=== PATIENT | male | born 1990 | race Caucasian/White ===

== ENCOUNTER 2022-02-01 20:13 | Emergency (ER) | payer OTHER, SELFPAY ==
[2022-02-01 22:27] VITALS: BP 137/85; PULSE 102; RESP 14; TEMP 36.5; O2SAT 100; BMI 23.7
== END 2022-02-02 01:00 | disposition left against medical advice (07) ==
PROVIDERS: Emergency Provider Emergency Medicine
DX: M79.672 Pain in left foot (principal)
CPT/HCPCS: 99281; 99282

== ENCOUNTER 2022-07-14 19:14 | Emergency (ER) | payer OTHER, SELFPAY ==
[2022-07-14 19:25] VITALS: BP 128/83; BP 162/80; PULSE 122; PULSE 66; RESP 16; O2SAT 97; O2SAT 98; BMI 25.0
--- NOTE | 2022-07-14 19:40 | ECG_ITS ---
Test Reason : SEIZURE Blood Pressure : / mmHG Vent. Rate : 109 BPM Atrial Rate : 109 BPM P-R Int : 158 ms QRS Dur : 104 ms QT Int : 340 ms P-R-T Axes : 052 013 033 degrees QTc Int : 457 ms Sinus tachycardia Otherwise normal ECG No previous ECGs available Referred By: Miranda Rodriguez Electronically Signed By:ROMAN RIVERA MD
--- OUTSIDE RECORDS SUMMARY | 2022-07-14 19:47 | XMS_ITS | Continuity of Care Document ---
:1990 Author Organization [facility] Address [address], 3rd [address], [address] [place] [id number]- Care Team Providers Name Role Phone Nitza Rangel MD Primary Care Physician Encounter [facility] Date(s): 01/14/20 - 01/24/20 [facility] [address], [address], [address] [place] [id number]- [facility] Attending Physician: Cindi Cotto Admitting Physician: Cindi Cotto Referring Physician: AdmtrCindi Allergies, Adverse Reactions, Alerts Substance Reaction Severity Status NKA Active Immunizations Given and Recorded Vaccine Date Status Refusal Reason influenza virus vaccine, inactivated 11/27/19 Given Meningococcal Conjugate Vaccine 01/29/08 Given Tet/Diphth/Acel, Pertussis (oldterm)1 01/29/08 Given Hepatitis B Vaccine (old term)2 06/07/02 Given Hepatitis B Vaccine (old term)3 12/13/01 Given tetanus-diphtheria toxoids (Td) 12/13/01 Given Measles/Mumps/Rubella Virus Vaccine 05/26/95 Given Measles/Mumps/Rubella Virus Vaccine 11/10/90 Given Diphth/Pertussis,Acel/Tetanus (oldterm) 01/26/95 Given Poliovirus Vaccine, Inactivated 01/26/95 Given Poliovirus Vaccine, Inactivated 03/15/91 Given Poliovirus Vaccine, Inactivated 89 Given Poliovirus Vaccine, Inactivated4 89 Given Poliovirus Vaccine, Inactivated 89 Given Diphth/Pertussis, Whl Cell/Tet(oldterm) 03/15/91 Given Diphth/Pertussis, Whl Cell/Tet(oldterm) 03/16/90 Given Diphth/Pertussis, Whl Cell/Tet(oldterm) 89 Given Diphth/Pertussis, Whl Cell/Tet(oldterm) 89 Given Haemophilus B Conj Vaccine (oldterm) 11/10/90 Given 1Admin Note: [id number] Note: 10 mcg given - 2 dose [id number] Note: 10 mcg given - 2 dose [id number] Comment: unchart, in error Medications Fish Oil 1 capsule, By Mouth, 2 times a day, Maintenance, 11/22/19 19:49:00 EST Start Date: 11/22/19 Status: OrderedFlonase 50 mcg/inh nasal spray 1 sprays, Nares, Both, Daily, Maintenance, 11/22/19 19:50:00 EST, [place] Start Date: 11/22/19 Status: Orderedfolic acid 1 mg oral tablet 1 mg, 1, tablet, By Mouth, Daily, # 30 tablet, Refills 0, Tot. Refills 0, Maintenance, 11/23/19 13:03:00 EST, [place] Requisition Start Date: 11/23/19 Status: OrderedhydrOXYzine hydrochloride 25 mg oral tablet TAKE 1 TABLET BY MOUTH EVERY 8 HOURS NEEDED Start Date: 01/08/20 Status: OrderedNiacin 1, tablet, By Mouth, Daily, Maintenance, 11/22/19 19:48:00 EST Start Date: 11/22/19 Status: OrderedProAir HFA 90 mcg/inh inhalation aerosol with adapter 1, puffs, Inhalation, Every 4 hours, PRN, # 8.5 Gm, Refills 0, Tot. Refills 0, Maintenance, 11/27/2009:30:00 EST, Aerosol, Route to Pharmacy Electronically, [id number], [facility], [address], , 11/27/19 8:50:00 E... Start Date: 11/27/19 Status: OrderedQUEtiapine 25 mg oral tablet TAKE 1 TABLET BY MOUTH EVERYDAY AT BEDTIME Start Date: 01/08/20 Status: Ordered Problem List Condition Effective Dates Status Health Status Informant Acne(Confirmed) Active Allergic rhinitis(Confirmed) Active Asthma(Confirmed) Active Attention deficit hyperactivity Active disorder(Confirmed) Social History Social History Type Response Sex Male
--- OUTSIDE RECORDS SUMMARY | 2022-07-14 19:47 | XMS_ITS ---
:1990 Author Care Team Providers Name Role Phone [place] Primary Care Provider Unavailable Allergies None recorded. Medications None recorded. Problems None recorded. Procedures None recorded. Results Lab Results None recorded. Past Encounters None recorded. Social History None recorded. Vaccine List None recorded. Plan of Care Reminders Provider Appointments None recorded. ? ? Lab None recorded. ? ? Referral None recorded. ? ? Procedures None recorded. ? ? Surgeries None recorded. ? ? Imaging None recorded. ? ? Vitals None recorded.
[2022-07-14] MEDS: LORazepam 1 MG TABLET 2 MG PO (19:52)
[2022-07-14] MEDS: 0.9 % Sodium Chloride 1,000 ML 999 ML IVCONT ×2 (19:55→21:48)
--- NOTE | 2022-07-14 19:59 | ED_ITS ---
HPI - Seizure General Chief Complaint: Seizure Stated Complaint: seizure Time Seen by Provider: 07/14/22 19:32 Source: patient and EMS Mode of arrival: EMS Limitations: no limitations History of Present Illness HPI Narrative: Patient comes to the emergency room complaining of a seizure. Patient states that he was on his way home, and a bus. Patient had a witnessed tonic-clonic seizure that lasted approximately 30 seconds. Patient states that he did feel an aura. Patient had 1 seizure prior to this 1 in 2019 and has not had any recurrent seizures. Patient states in 2019 he was evaluated, EKG was nondiagno stic according to the patient. Patient does not drive, does not have a car. Patient states that he did not bite his tongue or loss bowel/bladder control. At this time, patient is asymptomatic. Related Data Previous Rx's Medication Instructions Recorded levetiracetam 500 mg tablet 500 mg PO BID #60 tabs 07/14/22 (Keppra) Allergies Allergy/AdvReac Type Severity Reaction Status Date / Time No Known Allergies Allergy Verified 07/14/22 19:39 Review of Systems Review of Systems: Constitutional : No Weight loss, No Fever, No Chills, No Night Sweats, No Fatigue, No Malaise ENT/Mouth : No Hearing loss, No Ear Pain, No Nasal Congestion, No Sinus Pain, No Hoarseness, No sore throat, No Rhinorrhea, No Swallowing Difficulty Eyes: No Eye Pain, No Swelling, No Redness, No Foreign Body, No Discharge, No Vision Changes Cardiovascular : No Chest Pain, No SOB, No Dyspnea on Exertion, No Orthopnea, No Edema, No Palpitations Respiratory : No Cough, No Sputum, No Wheezing, No Smoke Exposure, No Dyspnea Gastrointestinal : No Nausea, No Vomiting, No Diarrhea, No Constipation, No abdominal Pain, No Hematochezia, No Melena Genitourinary : no irregular bleeding, No Dysuria, No Urinary Frequency, No Hematuria, No Urinary Incontinence, No Urgency, No Flank Pain, No Urinary Flow Changes, No Hesitancy Musculoskeletal : No joint pain, No Myalgias, No Joint Swelling Skin : No Skin Lesions, No rash Neuro : No Weakness, No Numbness, No Paresthesias, no headache, complaining of a tonic clonic seizure Psych : No Anxiety/Panic, No Depression, No SI/HI/AH/VH, No Social Issues, Heme/Lymph: No Bruising, No Bleeding,No Lymphadenopathy Endocrine : No Polyuria, No Polydipsia, No Temperature Intolerance [facility] Past Medical History Medical History (Updated 07/14/22 @ 22:47 by Miranda Rodriguez MD) Seizure Social History Social History Advance Directives: No Advance Directives Information Provided: No Physical Exam Vital Signs: Vital Signs: Last Vital Signs Temp 98.3 F 07/14/22 21:40 Pulse 95 07/14/22 22:44 Resp 16 07/14/22 22:44 BP 118/83 07/14/22 22:44 Pulse Ox 97 07/14/22 22:44 O2 Del Method 07/14/22 22:44 BMI result Body Mass Index 25.0 Const: Other: Appearance: Alert. Oriented X3. No acute distress. Eyes: Pupils equal, round and reactive to light. ENT: Pharynx normal. Neck: Normal inspection. Neck supple. No lymph nodes noted. No crepitus CVS: Normal heart rate and rhythm. Pulses normal. Normal S1 and S2 Respiratory: No respiratory distress. Breath sounds normal. No Wheezing. No rales Abdomen: Soft and nontender. No rigidity. No distention. Skin: Skin warm and dry. Normal skin color. Normal skin turgor. Extremities: No lower extremity edema. No Lacerations. No Rash Neuro: Oriented X 3. No motor deficit. No sensory deficit. Moving all extremities. No slurred speech. CN 2 through 12 grossly intact Psych: calm, cooperative, normal affect Course Course Course Narrative: Patient is awake, well appearing, not postictal at this time. All of patient's labs are pending. Patient given 2 mg of p.o. Ativan Patient's lactic acid is 3.2, elevated secondary to the seizure. Sepsis not suspected. Patient receiving IV fluids. Patient was also given 1000 mg of IV Keppra. This is the 2nd time that the patient has a seizure. Patient will be sent home with a prescription for Keppra. Patient instructed to have close follow-up with his PCP and with Neurology. MDM - Seizure Lab Data Result diagrams: 07/14/22 20:09 07/14/22 20:09 Labs: Lab Results 07/14/22 07/14/22 07/14/22 Range/Units 20:09 20:09 20:09 WBC 5.7 (4.8-10.8) X10*3/uL RBC 4.37 L (4.60-5.80) X10*6/uL Hgb 13.4 L (14.0-18.0) g/dl Hct 39.3 L (42.0-52.0) % MCV 89.9 (80.0-98.0) fL MCH 30.7 (27.0-33.0) pg MCHC 34.1 (31.0-36.0) g/dl RDW 14.1 (11.0-16.0) % Plt Count 323 (160-400) X10*3/uL MPV 9.5 (9.4-12.4) fL Immature Gran % (Auto) 0.2 (0.0-0.4) % Neut % (Auto) 79.1 H (45-73) % Lymph % (Auto) 11.7 L (20-40) % [place] % (Auto) 7.1 (2-11) % Eos % (Auto) 0.5 (0-4) % Baso % (Auto) 1.4 (0-2) % Lymph # (Auto) 0.7 L (1.2-4.9) X10*3/uL [place] # (Auto) 0.4 (0.1-1.2) X10*3/uL Eos # (Auto) 0.0 (0.0-0.4) X10*3/uL Baso # (Auto) 0.1 (0.0-0.2) X10*3/uL Abs Immat Gran (auto) 0.01 (0.00-0.03) X10*3/uL Absolute Neuts (auto) 4.5 (2.0-8.3) x10*3/uL Absolute Nucleated RBC 0.000 (0.0-0.012) X10*3/uL Nucleated RBC % (auto) 0.0 (0.0-0.2) /100WBC Sodium 138 (135-145) mmol/L Potassium 4.3 (3.3-5.1) mmol/L Chloride 99 (96-108) mmol/L Carbon Dioxide 26 (22-29) mmol/L Anion Gap 17 (12-20) BUN 14 (9-16) mg/dL Creatinine 0.71 (0.5-1.4) mg/dL Estim Creat Clear Calc 162.4 Estimated GFR > 60 Random Glucose 128 H (60-115) mg/dL Lactic Acid 3.2 H* (0.5-2.0) mmol/L Calcium 9.8 (8.4-10.2) mg/dL Total Bilirubin 0.4 (0.0-1.0) mg/dL Direct Bilirubin 0.2 (0.0-0.5) mg/dL AST 147 H (5-37) U/L ALT 247 H (0-40) U/L Alkaline Phosphatase 85 (39-117) U/L Total Creatine Kinase (38-174) U/L Total Protein 7.9 (6.5-8.0) g/dL Albumin 4.9 (3.5-5.0) g/dL Urine Color Urine Appearance Urine pH (5.0-9.0) Ur Specific [place] (1.005-1.025) Urine Protein (Neg-Trace) mg/dL Urine Glucose (UA) (Negative) mg/dL Urine Ketones (Negative) mg/dL Urine Blood (Negative) Urine Nitrite (Negative) Ur Leukocyte Esterase (Negative) Urine RBC (0-2) /HPF Urine WBC (0-5) /HPF Ur Squamous Epith Cells (0-2) /HPF Urine Bacteria (None Seen) Hyaline Casts (0-2) /LPF Urine Opiates Screen (Not Detect) Urine Fentanyl Screen (Not Detect) Ur Barbiturates Screen (Not Detect) Ur Phencyclidine Scrn (Not Detect) Ur Amphetamines Screen (Not Detect) U Benzodiazepines Scrn (Not Detect) Urine Cocaine Screen (Not Detect) U Marijuana (THC) Screen (Not Detect) Ethyl Alcohol mg/dL COVID-19 (JULY) (Negative) COVID-19 Clin Com 07/14/22 07/14/22 07/14/22 Range/Units 20:09 20:09 21:41 WBC (4.8-10.8) X10*3/uL RBC (4.60-5.80) X10*6/uL Hgb (14.0-18.0) g/dl Hct (42.0-52.0) % MCV (80.0-98.0) fL MCH (27.0-33.0) pg MCHC (31.0-36.0) g/dl RDW (11.0-16.0) % Plt Count (160-400) X10*3/uL MPV (9.4-12.4) fL Immature Gran % (Auto) (0.0-0.4) % Neut % (Auto) (45-73) % Lymph % (Auto) (20-40) % [place] % (Auto) (2-11) % Eos % (Auto) (0-4) % Baso % (Auto) (0-2) % Lymph # (Auto) (1.2-4.9) X10*3/uL [place] # (Auto) (0.1-1.2) X10*3/uL Eos # (Auto) (0.0-0.4) X10*3/uL Baso # (Auto) (0.0-0.2) X10*3/uL Abs Immat Gran (auto) (0.00-0.03) X10*3/uL Absolute Neuts (auto) (2.0-8.3) x10*3/uL Absolute Nucleated RBC (0.0-0.012) X10*3/uL Nucleated RBC % (auto) (0.0-0.2) /100WBC Sodium (135-145) mmol/L Potassium (3.3-5.1) mmol/L Chloride (96-108) mmol/L Carbon Dioxide (22-29) mmol/L Anion Gap (12-20) BUN (9-16) mg/dL Creatinine (0.5-1.4) mg/dL Estim Creat Clear Calc Estimated GFR Random Glucose (60-115) mg/dL Lactic Acid (0.5-2.0) mmol/L Calcium (8.4-10.2) mg/dL Total Bilirubin (0.0-1.0) mg/dL Direct Bilirubin (0.0-0.5) mg/dL AST (5-37) U/L ALT (0-40) U/L Alkaline Phosphatase (39-117) U/L Total Creatine Kinase 349 H (38-174) U/L Total Protein (6.5-8.0) g/dL Albumin (3.5-5.0) g/dL Urine Color Yellow Urine Appearance Clear Urine pH 8.0 (5.0-9.0) Ur Specific [place] 1.025 (1.005-1.025) Urine Protein 100 (2+) H (Neg-Trace) mg/dL Urine Glucose (UA) Negative (Negative) mg/dL Urine Ketones Trace (Negative) mg/dL Urine Blood Negative (Negative) Urine Nitrite Negative (Negative) Ur Leukocyte Esterase Negative (Negative) Urine RBC 0-2 (0-2) /HPF Urine WBC 0-5 (0-5) /HPF Ur Squamous Epith Cells 0-2 (0-2) /HPF Urine Bacteria None Seen (None Seen) Hyaline Casts 0-2 (0-2) /LPF Urine Opiates Screen (Not Detect) Urine Fentanyl Screen (Not Detect) Ur Barbiturates Screen (Not Detect) Ur Phencyclidine Scrn (Not Detect) Ur Amphetamines Screen (Not Detect) U Benzodiazepines Scrn (Not Detect) Urine Cocaine Screen (Not Detect) U Marijuana (THC) Screen (Not Detect) Ethyl Alcohol < 10 mg/dL COVID-19 (JULY) Negative (Negative) COVID-19 Clin Com See Note 07/14/22 Range/Units 21:41 WBC (4.8-10.8) X10*3/uL RBC (4.60-5.80) X10*6/uL Hgb (14.0-18.0) g/dl Hct (42.0-52.0) % MCV (80.0-98.0) fL MCH (27.0-33.0) pg MCHC (31.0-36.0) g/dl RDW (11.0-16.0) % Plt Count (160-400) X10*3/uL MPV (9.4-12.4) fL Immature Gran % (Auto) (0.0-0.4) % Neut % (Auto) (45-73) % Lymph % (Auto) (20-40) % [place] % (Auto) (2-11) % Eos % (Auto) (0-4) % Baso % (Auto) (0-2) % Lymph # (Auto) (1.2-4.9) X10*3/uL [place] # (Auto) (0.1-1.2) X10*3/uL Eos # (Auto) (0.0-0.4) X10*3/uL Baso # (Auto) (0.0-0.2) X10*3/uL Abs Immat Gran (auto) (0.00-0.03) X10*3/uL Absolute Neuts (auto) (2.0-8.3) x10*3/uL Absolute Nucleated RBC (0.0-0.012) X10*3/uL Nucleated RBC % (auto) (0.0-0.2) /100WBC Sodium (135-145) mmol/L Potassium (3.3-5.1) mmol/L Chloride (96-108) mmol/L Carbon Dioxide (22-29) mmol/L Anion Gap (12-20) BUN (9-16) mg/dL Creatinine (0.5-1.4) mg/dL Estim Creat Clear Calc Estimated GFR Random Glucose (60-115) mg/dL Lactic Acid (0.5-2.0) mmol/L Calcium (8.4-10.2) mg/dL Total Bilirubin (0.0-1.0) mg/dL Direct Bilirubin (0.0-0.5) mg/dL AST (5-37) U/L ALT (0-40) U/L Alkaline Phosphatase (39-117) U/L Total Creatine Kinase (38-174) U/L Total Protein (6.5-8.0) g/dL Albumin (3.5-5.0) g/dL Urine Color Urine Appearance Urine pH (5.0-9.0) Ur Specific [place] (1.005-1.025) Urine Protein (Neg-Trace) mg/dL Urine Glucose (UA) (Negative) mg/dL Urine Ketones (Negative) mg/dL Urine Blood (Negative) Urine Nitrite (Negative) Ur Leukocyte Esterase (Negative) Urine RBC (0-2) /HPF Urine WBC (0-5) /HPF Ur Squamous Epith Cells (0-2) /HPF Urine Bacteria (None Seen) Hyaline Casts (0-2) /LPF Urine Opiates Screen Not Detected (Not Detect) Urine Fentanyl Screen Not Detected (Not Detect) Ur Barbiturates Screen Not Detected (Not Detect) Ur Phencyclidine Scrn Not Detected (Not Detect) Ur Amphetamines Screen Not Detected (Not Detect) U Benzodiazepines Scrn Not Detected (Not Detect) Urine Cocaine Screen Not Detected (Not Detect) U Marijuana (THC) Screen POSITIVE H (Not Detect) Ethyl Alcohol mg/dL COVID-19 (JULY) (Negative) COVID-19 Clin Com Discharge Plan Discharge Clinical Impression: Tonic-clonic generalized seizure Patient Disposition: Home, Self-Care Instructions: Recurrent Seizures in Adults (ED) Additional Instructions: Please follow-up with your primary care physician tomorrow. If you have any worsening or new symptoms, please return to the emergency room or call 911 Prescriptions: New levetiracetam [Keppra] 500 mg tablet 500 mg PO BID Qty: 60 1RF Referrals: Darrian Arzola MD [Physician] - 1 day
[2022-07-14 20:15] LABS: MANUAL DIFF FLAG NO
[2022-07-14 20:17] LABS: Basophils Absolute Auto 0.1 X10*3/uL (0.0-0.2); Basophils Percent Auto 1.4 % (0-2); Eosinophils Percent Auto 0.5 % (0-4); Hematocrit 39.3 % (42.0-52.0); Hemoglobin 13.4 g/dl (14.0-18.0); Imm Gran Abs Auto 0.01 X10*3/uL (0.00-0.03); Imm Gran Pct Auto 0.2 % (0.0-0.4); Lymphocytes Absolute Auto 0.7 X10*3/uL (1.2-4.9); Lymphocytes Percent Auto 11.7 % (20-40); Mean Corpuscular HGB Conc 34.1 g/dl (31.0-36.0); Mean Corpuscular Hemoglobin 30.7 pg (27.0-33.0); Mean Corpuscular Volume 89.9 fL (80.0-98.0); Mean Platelet Volume 9.5 fL (9.4-12.4); Monocytes Absolute Auto 0.4 X10*3/uL (0.1-1.2); Monocytes Percent Auto 7.1 % (2-11); Neutrophils Absolute Auto 4.5 x10*3/uL (2.0-8.3); Neutrophils Percent Auto 79.1 % (45-73); Platelet Count 323 X10*3/uL (160-400); Red Blood Count 4.37 X10*6/uL (4.60-5.80); Red Cell Distribution Width 14.1 % (11.0-16.0); White Blood Count 5.7 X10*3/uL (4.8-10.8)
[2022-07-14 20:36] LABS: Lactic Acid 3.2 mmol/L (0.5-2.0)
[2022-07-14 20:38] LABS: Ethanol < 10 mg/dL
[2022-07-14 20:40] LABS: Alanine Aminotransferase 247 U/L (0-40); Albumin Level 4.9 g/dL (3.5-5.0); Alkaline Phosphatase 85 U/L (39-117); Anion Gap 17 (12-20); Aspartate Amino Transferase 147 U/L (5-37); Bilirubin Direct 0.2 mg/dL (0.0-0.5); Bilirubin Total 0.4 mg/dL (0.0-1.0); Blood Urea Nitrogen 14 mg/dL (9-16); Calcium 9.8 mg/dL (8.4-10.2); Carbon Dioxide 26 mmol/L (22-29); Chloride 99 mmol/L (96-108); Creatinine Clr Calc Pharmacy 162.4; Estimated Glomerular Filt Rate > 60; Glucose Random 128 mg/dL (60-115); Potassium 4.3 mmol/L (3.3-5.1); Sodium 138 mmol/L (135-145); Total Protein 7.9 g/dL (6.5-8.0)
[2022-07-14 20:45] LABS: COVID-19 Test Negative (Negative); IDNOW Serial# 55D5AD1C
[2022-07-14] MEDS: levETIRAcetam in NaCl (iso-os) 1,000 MG/100 ML PIGGYBACK 400 MG IV (21:18)
[2022-07-14 21:40] VITALS: BP 122/90; PULSE 109; RESP 18; TEMP 36.8; O2SAT 99
[2022-07-14 21:49] LABS: Appearance Urine Clear; Color Urine Yellow; Glucose Urine UA Negative (Negative); Leukocyte Esterase Urine Negative (Negative); Nitrite Urine Negative (Negative); Specific Gravity - Urine 1.025 (1.005-1.025); UMIC TRIGGER UACC YES; Urine Blood Negative (Negative); Urine Ketones Trace mg/dL (Negative); Urine Protein 100 (2+) mg/dL (Neg-Trace)
[2022-07-14 21:54] LABS: Bacteria Urine None Seen (None Seen); Hyaline Casts Urine 0-2 /LPF (0-2); RBC Urine 0-2 /HPF (0-2); Squamous Epithelial Cell Urine 0-2 /HPF (0-2); WBC Urine 0-5 /HPF (0-5)
[2022-07-14 22:00] VITALS: BP 124/84; PULSE 97; RESP 15; O2SAT 97
[2022-07-14 22:03] LABS: Amphetamine Screen Urine Not Detected (Not Detect); Barbiturates, Urine Not Detected (Not Detect); Benzodiazepines Screen Urine Not Detected (Not Detect); Cannabinoid Screen Urine POSITIVE (Not Detect); Cocaine Screen Urine Not Detected (Not Detect); Fentanyl, urine Not Detected (Not Detect); Opiate Screen Urine Not Detected (Not Detect); Phencyclidine Screen Urine Not Detected (Not Detect)
[2022-07-14 22:13] LABS: Reflex Lactate? Lactic Acid Added
[2022-07-14 22:44] VITALS: BP 118/83; PULSE 95; RESP 16; O2SAT 97
[2022-07-14 23:08] LABS: ~Lactic Acid-LAB USE ONLY 0.8 mmol/L (0.5-2.0)
== END 2022-07-14 22:59 | disposition home or self-care (01) ==
PROVIDERS: Emergency Provider Emergency Medicine
DX: R56.9 Unspecified convulsions (principal); Z20.822 Contact with and (suspected) exposure to COVID-19; Z79.899 Other long term (current) drug therapy
CPT/HCPCS: 36415; 80048; 80076; 80307; 81001; 82077; 82550; 83605; 85025; 87635; 93005; 96361; 96365; 99284; J1953

== ENCOUNTER 2022-12-06 19:39 | Emergency (ER) | payer OTHER, SELFPAY ==
--- NOTE | ~2022-12-06 | CT_ITS ---
EXAMINATION: CT HEAD WITHOUT CONTRAST CLINICAL INFORMATION: Fall, head trauma COMPARISON: None TECHNIQUE: Contiguous axial imaging was performed from the skull base to vertex without intravenous administration of contrast. This CT examination was performed using dose optimization techniques as appropriate, variously including the following: *Automated exposure control *Adjustment of mA and/or kV according to patient size (this includes techniques or standardized protocols for targeted exams where dose is matched to indication/reason for exam; i.e. extremities or head) *Use of iterative reconstruction technique DLP: 760 mGy-cm FINDINGS: There is posterior interhemispheric linear area of hypodensity appears contiguous inferior sagittal sinus and transverse sinus an likely not hemorrhage. No extra-axial or intra-axial hematoma seen. There is no acute infarction in evolution. The rose to white matter difference is maintained. No midline shift. The lateral ventricles are symmetrical in size and configuration appears normal. A right frontal scalp hematoma without underlying calvarial fracture is noted. Bilateral paranasal sinuses and mastoid air cells are well-aerated. CT/CT head/brain wo IV con IMPRESSION: 1. No acute intracranial process seen. 2. Right frontal scalp hematoma without underlying calvarial fracture.
[2022-12-06 20:13] VITALS: BP 151/104; PULSE 113; RESP 16; TEMP 36.7; O2SAT 96; BMI 23.7
--- NOTE | 2022-12-06 20:14 | ED_ITS ---
HPI - General Adult General Chief complaint: General Medical <NARINDER Johnson - Last Filed: 12/06/22 20:16> Stated complaint: Fall/Head inj <NARINDER Johnson - Last Filed: 12/06/22 20:16> Time Seen by Provider: 12/06/22 21:03 <NARINDER Johnson - Last Filed: 12/06/22 20:16> Source: patient <Ale Tam MD - Last Filed: 12/06/22 22:34> Mode of arrival: ambulatory <Ale Tam MD - Last Filed: 12/06/22 22:34> History of Present Illness HPI narrative: 32-year-old male who presents alert and oriented x3 for medical clearance to attend detox at [facility] tomorrow further informs me that he has a very important Zoom meeting with the behavioral team on evening that he cannot miss for he will be in trouble with his chief information security officer. He has no other complaints, his last alcoholic drink as per him was yesterday. Patient states that he had a seizure this morning. <Ale Tam MD - Last Filed: 12/06/22 22:34> Related Data Home medications: Previous Rx's Medication Instructions Recorded levetiracetam 500 mg tablet 500 mg PO BID #60 tabs 07/14/22 (Tete) <NARINDER Johnson - Last Filed: 12/06/22 20:16> Allergies/adverse reactions: Allergies Allergy/AdvReac Type Severity Reaction Status Date / Time No Known Allergies Allergy Verified 07/14/22 19:39 <NARINDER Johnson - Last Filed: 12/06/22 20:16> Review of Systems Review of Systems: Pertinent positives and negatives as stated in HPI <Ale Tam MD - Last Filed: 12/06/22 22:34> PMFSH Past Medical History Source: nursing notes reviewed <Ale Tam MD - Last Filed: 12/06/22 22:34> Medical History: Medical History Seizure <NARINDER Johnson - Last Filed: 12/06/22 20:16> Social History Social History: Social History Alcohol intake: current Alcohol intake frequency: 3 or more drinks per day Alcohol type: beer, wine and hard liquor Smoked in Last 30 Days: No Use of substances other than those prescribed or required for medical reasons: No Advance Directives: No Advance Directives Information Provided: Yes <NARINDER Johnson - Last Filed: 12/06/22 20:16> Physical Exam ED Vital Signs: Vital Signs - 24 hr 12/06/22 20:13 12/06/22 22:35 12/07/22 01:08 Temperature 98.0 F 98.3 F Pulse Rate 113 H 101 H 106 H Respiratory Rate 16 16 13 Blood Pressure 151/104 H 130/85 131/82 Pulse Oximetry 96 95 97 Oxygen Delivery Method Room Air Room Air Room Air 12/07/22 04:27 12/07/22 06:19 12/07/22 07:49 Temperature 98.6 F 98.2 F Pulse Rate 101 H 99 108 H Respiratory Rate 16 18 15 Blood Pressure 121/73 112/79 Pulse Oximetry 97 97 Oxygen Delivery Method Room Air Room Air Room Air 12/07/22 10:00 Temperature 98.5 F Pulse Rate 100 Respiratory Rate 16 Blood Pressure 126/81 Pulse Oximetry 96 Oxygen Delivery Method Room Air BMI result Body Mass Index 23.7 <NARINDER Johnson - Last Filed: 12/06/22 20:16> Vital Signs - 24 hr 12/06/22 20:13 12/06/22 22:35 12/07/22 01:08 Temperature 98.0 F 98.3 F Pulse Rate 113 H 101 H 106 H Respiratory Rate 16 16 13 Blood Pressure 151/104 H 130/85 131/82 Pulse Oximetry 96 95 97 Oxygen Delivery Method Room Air Room Air Room Air 12/07/22 04:27 12/07/22 06:19 12/07/22 07:49 Temperature 98.6 F 98.2 F Pulse Rate 101 H 99 108 H Respiratory Rate 16 18 15 Blood Pressure 121/73 112/79 Pulse Oximetry 97 97 Oxygen Delivery Method Room Air Room Air Room Air 12/07/22 10:00 Temperature 98.5 F Pulse Rate 100 Respiratory Rate 16 Blood Pressure 126/81 Pulse Oximetry 96 Oxygen Delivery Method Room Air BMI result Body Mass Index 23.7 VITAL SIGNS: Reviewed. GENERAL: Well developed, well nourished, in no acute distress. HEAD: Normocephalic/a large contusion to the right forehead as smaller erythematous area to the left forehead EYES: PERRLA, EOMI, no nystagmus EARS: Ext canals without abnormality NOSE: Nares patent bilateral OROPHARYNX: no oral lesions noted, posterior pharynx clear NECK: Supple, no adenopathy, no midline cervical spine tenderness or step-offs noted LUNGS: Normal breath sounds. No adventitious sounds or accessory muscle use. SpO2<96> CARDIOVASCULAR: Regular rate and rhythm without noted murmurs ABDOMEN: Soft, non-tender, non-distended with bowel sounds MUSCULOSKELETAL: No tenderness, deformities, or effusions noted on gross inspection. EXTREMITIES: No cyanosis, clubbing or edema. SKIN: Inspection of the skin reveals no rashes, please see details above NEUROLOGIC: Alert and oriented x 4. Strength and sensation to light touch were grossly intact x 4. <Ale Tam MD - Last Filed: 12/06/22 22:34> Course Course Course Narrative: RME - 32 yo male with history of ETOH abuse, history of seizures on Topamax who presents to the ER for medical clearance so he can go to [facility] for detox. States last drink was yesterday. Vague on quantity consumed. He arrives to triage room with large bump on his forehead, superficial abrasions. States he fell on Tuesday, tripped and fell. Not answering questions appropr iately. Tachycardic and hypertensive in triage. Plan - CT head, labs and UTox. <NARINDER Johnson - Last Filed: 12/06/22 20:16> Medications Administered Discontinued Medications Generic Name Dose Route Start Last Admin Trade Name Freq PRN Reason Stop Dose Admin Sodium Chloride 1,000 mls @ 999 mls/hr 12/06/22 21:15 12/06/22 22:47 Ns IV 12/06/22 22:15 Infused .Q1H1M CLAUDIO Infusion Levetiracetam 1,000 mg 12/06/22 22:31 12/06/22 22:47 Levetiracetam 1,000 Mg Tablet PO 12/06/22 22:32 1,000 mg ONCE ONE Administration <NARINDER Johnson - Last Filed: 12/06/22 20:16> Medications Administered Discontinued Medications Generic Name Dose Route Start Last Admin Trade Name Gaurav PRN Reason Stop Dose Admin Sodium Chloride 1,000 mls @ 999 mls/hr 12/06/22 21:15 12/06/22 22:47 Ns IV 12/06/22 22:15 Infused .Q1H1M CLAUDIO Infusion Levetiracetam 1,000 mg 12/06/22 22:31 12/06/22 22:47 Levetiracetam 1,000 Mg Tablet PO 12/06/22 22:32 1,000 mg ONCE ONE Administration <Ale Tam MD - Last Filed: 12/06/22 22:34> Medical Decision Making Medical Decision Making [facility] Narrative: 2121: This is a 32-year-old male with history and clinical presentation consistent with alcohol use disorder as well as a seizure disorder for which he takes Keppra 500 mg twice a day. Although patient states that he took his medication is unclear whether not the seizure that he sustained earlier in the day was secondary to alcohol withdrawal or poor compliance with seizure medication. I did speak with the acid recovery operator who confirms that the patient cannot have electronic devices while at [facility], this was further discussed with the patient at bedside and it was impressed upon him that if he has an important Zoom meeting on evening for his chief information security officer then he will be unable to enter detox at [facility] at this time. Will obtain basic labs. I have reviewed all investigations and there are no acute findings my interpretation is as patient is currently intoxicated and will observe until morning when he can be discharged. He will be getting CIWA scales every 4 hours while here in the emergency room. I will give patient Keppra load. He is otherwise hemodynamically stable with a BAL-479 Patient placed in physician observation because the patient needed more time to be less intoxicated. At the time observation was started the patient's vital signs were stable, patient is alert and oriented, neuro: Nonfocal, CV RRR, lungs clear <Ale Tam MD - Last Filed: 12/06/22 22:34> Differential Diagnosis Please see the discussion above <Ale Tam MD - Last Filed: 12/06/22 22:34> Lab Data Please see the discussion above <Ale Tam MD - Last Filed: 12/06/22 22:34> Result Diagrams: 12/06/22 21:12 12/06/22 21:12 <NARINDER Johnson - Last Filed: 12/06/22 20:16> Labs: Lab Results 12/06/22 12/06/22 12/06/22 Range/Units 21:12 21:12 21:13 WBC 5.5 (4.8-10.8) X10*3/uL RBC 4.94 (4.60-5.80) X10*6/uL Hgb 14.6 (14.0-18.0) g/dl Hct 43.7 (42.0-52.0) % MCV 88.5 (80.0-98.0) fL MCH 29.6 (27.0-33.0) pg MCHC 33.4 (31.0-36.0) g/dl RDW 14.1 (11.0-16.0) % Plt Count 215 D (160-400) X10*3/uL MPV 9.7 (9.4-12.4) fL Immature Gran % (Auto) 0.2 (0.0-0.4) % Neut % (Auto) 69.3 (45-73) % Lymph % (Auto) 20.8 (20-40) % Sunflower % (Auto) 7.7 (2-11) % Eos % (Auto) 0.5 (0-4) % Baso % (Auto) 1.5 (0-2) % Lymph # (Auto) 1.1 L (1.2-4.9) X10*3/uL Sunflower # (Auto) 0.4 (0.1-1.2) X10*3/uL Eos # (Auto) 0.0 (0.0-0.4) X10*3/uL Baso # (Auto) 0.1 (0.0-0.2) X10*3/uL Abs Immat Gran (auto) 0.01 (0.00-0.03) X10*3/uL Absolute Neuts (auto) 3.8 (2.0-8.3) x10*3/uL Absolute Nucleated RBC 0.000 (0.0-0.012) X10*3/uL Nucleated RBC % (auto) 0.0 (0.0-0.2) /100WBC Sodium 141 (135-145) mmol/L Potassium 4.1 (3.3-5.1) mmol/L Chloride 98 (96-108) mmol/L Carbon Dioxide 22 (22-29) mmol/L Anion Gap 25 H (12-20) BUN 10 (9-16) mg/dL Creatinine 0.69 (0.5-1.4) mg/dL Estim Creat Clear Calc 172.0 Estimated GFR > 60 Random Glucose 91 (60-115) mg/dL Calcium 8.7 D (8.4-10.2) mg/dL Magnesium 1.8 (1.6-2.6) mg/dL Total Bilirubin 0.6 (0.0-1.0) mg/dL Direct Bilirubin 0.2 (0.0-0.5) mg/dL AST 307 H (5-37) U/L ALT 260 H (0-40) U/L Alkaline Phosphatase 68 (39-117) U/L Total Protein 8.7 H (6.5-8.0) g/dL Albumin 5.4 H (3.5-5.0) g/dL Urine Opiates Screen (Not Detect) Urine Fentanyl Screen (Not Detect) Ur Barbiturates Screen (Not Detect) Ur Phencyclidine Scrn (Not Detect) Ur Amphetamines Screen (Not Detect) U Benzodiazepines Scrn (Not Detect) Urine Cocaine Screen (Not Detect) U Marijuana (THC) Screen (Not Detect) Ethyl Alcohol 479 H* mg/dL COVID-19 (JULY) Negative (Negative) COVID-19 Clin Com See Note 12/06/22 Range/Units 22:40 WBC (4.8-10.8) X10*3/uL RBC (4.60-5.80) X10*6/uL Hgb (14.0-18.0) g/dl Hct (42.0-52.0) % MCV (80.0-98.0) fL MCH (27.0-33.0) pg MCHC (31.0-36.0) g/dl RDW (11.0-16.0) % Plt Count (160-400) X10*3/uL MPV (9.4-12.4) fL Immature Gran % (Auto) (0.0-0.4) % Neut % (Auto) (45-73) % Lymph % (Auto) (20-40) % Sunflower % (Auto) (2-11) % Eos % (Auto) (0-4) % Baso % (Auto) (0-2) % Lymph # (Auto) (1.2-4.9) X10*3/uL Sunflower # (Auto) (0.1-1.2) X10*3/uL Eos # (Auto) (0.0-0.4) X10*3/uL Baso # (Auto) (0.0-0.2) X10*3/uL Abs Immat Gran (auto) (0.00-0.03) X10*3/uL Absolute Neuts (auto) (2.0-8.3) x10*3/uL Absolute Nucleated RBC (0.0-0.012) X10*3/uL Nucleated RBC % (auto) (0.0-0.2) /100WBC Sodium (135-145) mmol/L Potassium (3.3-5.1) mmol/L Chloride (96-108) mmol/L Carbon Dioxide (22-29) mmol/L Anion Gap (12-20) BUN (9-16) mg/dL Creatinine (0.5-1.4) mg/dL Estim Creat Clear Calc Estimated GFR Random Glucose (60-115) mg/dL Calcium (8.4-10.2) mg/dL Magnesium (1.6-2.6) mg/dL Total Bilirubin (0.0-1.0) mg/dL Direct Bilirubin (0.0-0.5) mg/dL AST (5-37) U/L ALT (0-40) U/L Alkaline Phosphatase (39-117) U/L Total Protein (6.5-8.0) g/dL Albumin (3.5-5.0) g/dL Urine Opiates Screen Not Detected (Not Detect) Urine Fentanyl Screen Not Detected (Not Detect) Ur Barbiturates Screen Not Detected (Not Detect) Ur Phencyclidine Scrn Not Detected (Not Detect) Ur Amphetamines Screen Not Detected (Not Detect) U Benzodiazepines Scrn Not Detected (Not Detect) Urine Cocaine Screen Not Detected (Not Detect) U Marijuana (THC) Screen Not Detected (Not Detect) Ethyl Alcohol mg/dL COVID-19 (JULY) (Negative) COVID-19 Clin Com <NARINDER Johnson - Last Filed: 12/06/22 20:16> Lab Results 12/06/22 12/06/22 12/06/22 Range/Units 21:12 21:12 21:13 WBC 5.5 (4.8-10.8) X10*3/uL RBC 4.94 (4.60-5.80) X10*6/uL Hgb 14.6 (14.0-18.0) g/dl Hct 43.7 (42.0-52.0) % MCV 88.5 (80.0-98.0) fL MCH 29.6 (27.0-33.0) pg MCHC 33.4 (31.0-36.0) g/dl RDW 14.1 (11.0-16.0) % Plt Count 215 D (160-400) X10*3/uL MPV 9.7 (9.4-12.4) fL Immature Gran % (Auto) 0.2 (0.0-0.4) % Neut % (Auto) 69.3 (45-73) % Lymph % (Auto) 20.8 (20-40) % Sunflower % (Auto) 7.7 (2-11) % Eos % (Auto) 0.5 (0-4) % Baso % (Auto) 1.5 (0-2) % Lymph # (Auto) 1.1 L (1.2-4.9) X10*3/uL Sunflower # (Auto) 0.4 (0.1-1.2) X10*3/uL Eos # (Auto) 0.0 (0.0-0.4) X10*3/uL Baso # (Auto) 0.1 (0.0-0.2) X10*3/uL Abs Immat Gran (auto) 0.01 (0.00-0.03) X10*3/uL Absolute Neuts (auto) 3.8 (2.0-8.3) x10*3/uL Absolute Nucleated RBC 0.000 (0.0-0.012) X10*3/uL Nucleated RBC % (auto) 0.0 (0.0-0.2) /100WBC Sodium 141 (135-145) mmol/L Potassium 4.1 (3.3-5.1) mmol/L Chloride 98 (96-108) mmol/L Carbon Dioxide 22 (22-29) mmol/L Anion Gap 25 H (12-20) BUN 10 (9-16) mg/dL Creatinine 0.69 (0.5-1.4) mg/dL Estim Creat Clear Calc 172.0 Estimated GFR > 60 Random Glucose 91 (60-115) mg/dL Calcium 8.7 D (8.4-10.2) mg/dL Magnesium 1.8 (1.6-2.6) mg/dL Total Bilirubin 0.6 (0.0-1.0) mg/dL Direct Bilirubin 0.2 (0.0-0.5) mg/dL AST 307 H (5-37) U/L ALT 260 H (0-40) U/L Alkaline Phosphatase 68 (39-117) U/L Total Protein 8.7 H (6.5-8.0) g/dL Albumin 5.4 H (3.5-5.0) g/dL Urine Opiates Screen (Not Detect) Urine Fentanyl Screen (Not Detect) Ur Barbiturates Screen (Not Detect) Ur Phencyclidine Scrn (Not Detect) Ur Amphetamines Screen (Not Detect) U Benzodiazepines Scrn (Not Detect) Urine Cocaine Screen (Not Detect) U Marijuana (THC) Screen (Not Detect) Ethyl Alcohol 479 H* mg/dL COVID-19 (JULY) Negative (Negative) COVID-19 Clin Com See Note 12/06/22 Range/Units 22:40 WBC (4.8-10.8) X10*3/uL RBC (4.60-5.80) X10*6/uL Hgb (14.0-18.0) g/dl Hct (42.0-52.0) % MCV (80.0-98.0) fL MCH (27.0-33.0) pg MCHC (31.0-36.0) g/dl RDW (11.0-16.0) % Plt Count (160-400) X10*3/uL MPV (9.4-12.4) fL Immature Gran % (Auto) (0.0-0.4) % Neut % (Auto) (45-73) % Lymph % (Auto) (20-40) % Sunflower % (Auto) (2-11) % Eos % (Auto) (0-4) % Baso % (Auto) (0-2) % Lymph # (Auto) (1.2-4.9) X10*3/uL Sunflower # (Auto) (0.1-1.2) X10*3/uL Eos # (Auto) (0.0-0.4) X10*3/uL Baso # (Auto) (0.0-0.2) X10*3/uL Abs Immat Gran (auto) (0.00-0.03) X10*3/uL Absolute Neuts (auto) (2.0-8.3) x10*3/uL Absolute Nucleated RBC (0.0-0.012) X10*3/uL Nucleated RBC % (auto) (0.0-0.2) /100WBC Sodium (135-145) mmol/L Potassium (3.3-5.1) mmol/L Chloride (96-108) mmol/L Carbon Dioxide (22-29) mmol/L Anion Gap (12-20) BUN (9-16) mg/dL Creatinine (0.5-1.4) mg/dL Estim Creat Clear Calc Estimated GFR Random Glucose (60-115) mg/dL Calcium (8.4-10.2) mg/dL Magnesium (1.6-2.6) mg/dL Total Bilirubin (0.0-1.0) mg/dL Direct Bilirubin (0.0-0.5) mg/dL AST (5-37) U/L ALT (0-40) U/L Alkaline Phosphatase (39-117) U/L Total Protein (6.5-8.0) g/dL Albumin (3.5-5.0) g/dL Urine Opiates Screen Not Detected (Not Detect) Urine Fentanyl Screen Not Detected (Not Detect) Ur Barbiturates Screen Not Detected (Not Detect) Ur Phencyclidine Scrn Not Detected (Not Detect) Ur Amphetamines Screen Not Detected (Not Detect) U Benzodiazepines Scrn Not Detected (Not Detect) Urine Cocaine Screen Not Detected (Not Detect) U Marijuana (THC) Screen Not Detected (Not Detect) Ethyl Alcohol mg/dL COVID-19 (JULY) (Negative) COVID-19 Clin Com <Ale Tam MD - Last Filed: 12/06/22 22:34> Radiology Impression Radiologist Impression: My interpretation is in agreement with radiology's impression of the imaging study. <Ale Tam MD - Last Filed: 12/06/22 22:34> Discharge Plan Discharge Clinical Impression: Alcohol intoxication, Contusion of face, Alcohol use disorder <NARINDER Johnson - Last Filed: 12/06/22 20:16> Patient Disposition: Still a Patient <NARINDER Johnson - Last Filed: 12/06/22 20:16> Prescriptions: No Action levetiracetam [Keppra] 500 mg tablet 500 mg PO BID Qty: 60 1RF <NARINDER Johnson - Last Filed: 12/06/22 20:16>
[2022-12-06] MEDS: 0.9 % Sodium Chloride 1,000 ML 999 ML IV (21:18)
[2022-12-06 21:19] LABS: MANUAL DIFF FLAG NO
[2022-12-06 21:20] LABS: Basophils Absolute Auto 0.1 X10*3/uL (0.0-0.2); Basophils Percent Auto 1.5 % (0-2); Eosinophils Percent Auto 0.5 % (0-4); Hematocrit 43.7 % (42.0-52.0); Hemoglobin 14.6 g/dl (14.0-18.0); Imm Gran Abs Auto 0.01 X10*3/uL (0.00-0.03); Imm Gran Pct Auto 0.2 % (0.0-0.4); Lymphocytes Absolute Auto 1.1 X10*3/uL (1.2-4.9); Lymphocytes Percent Auto 20.8 % (20-40); Mean Corpuscular HGB Conc 33.4 g/dl (31.0-36.0); Mean Corpuscular Hemoglobin 29.6 pg (27.0-33.0); Mean Corpuscular Volume 88.5 fL (80.0-98.0); Mean Platelet Volume 9.7 fL (9.4-12.4); Monocytes Absolute Auto 0.4 X10*3/uL (0.1-1.2); Monocytes Percent Auto 7.7 % (2-11); Neutrophils Absolute Auto 3.8 x10*3/uL (2.0-8.3); Neutrophils Percent Auto 69.3 % (45-73); Platelet Count 215 X10*3/uL (160-400); Red Blood Count 4.94 X10*6/uL (4.60-5.80); Red Cell Distribution Width 14.1 % (11.0-16.0); White Blood Count 5.5 X10*3/uL (4.8-10.8)
--- NOTE | 2022-12-06 21:27 | PC.NURSE ---
Pt aox3. Breaths are even, regular, and unlabored. Sinus tach on monitor with HR 104. Abd soft and non tender. Skin warm pink and dry. Mildy anxious and fidgety. Denies SI/HI at this time. Reports hx of alcohol withdrawal with hx of seizures. Seizure precautions in place. CIWA 10. Hematoma noted to right side of forehead. Pt reports falling on the ice earlier today. CT scan done. IV line established with 20G on L AC. Labs drawn and sent. Pending urine sample from pt. Pt aware of plan of care. Will continue to monitor.
[2022-12-06 21:32] LABS: COVID-19 Test Negative (Negative); IDNOW Serial# 6674DD1D
[2022-12-06 21:40] LABS: Alanine Aminotransferase 260 U/L (0-40); Albumin Level 5.4 g/dL (3.5-5.0); Alkaline Phosphatase 68 U/L (39-117); Anion Gap 25 (12-20); Aspartate Amino Transferase 307 U/L (5-37); Bilirubin Direct 0.2 mg/dL (0.0-0.5); Bilirubin Total 0.6 mg/dL (0.0-1.0); Blood Urea Nitrogen 10 mg/dL (9-16); Calcium 8.7 mg/dL (8.4-10.2); Carbon Dioxide 22 mmol/L (22-29); Chloride 98 mmol/L (96-108); Estimated Glomerular Filt Rate > 60; Ethanol 479 mg/dL; Glucose Random 91 mg/dL (60-115); Magnesium 1.8 mg/dL (1.6-2.6); Potassium 4.1 mmol/L (3.3-5.1); Sodium 141 mmol/L (135-145); Total Protein 8.7 g/dL (6.5-8.0)
[2022-12-06 22:35] VITALS: BP 130/85; PULSE 101; RESP 16; TEMP 36.8; O2SAT 95
[2022-12-06] MEDS: levETIRAcetam 1,000 MG TABLET 1000 MG PO (22:47)
[2022-12-06 23:02] LABS: Amphetamine Screen Urine Not Detected (Not Detect); Barbiturates, Urine Not Detected (Not Detect); Benzodiazepines Screen Urine Not Detected (Not Detect); Cannabinoid Screen Urine Not Detected (Not Detect); Cocaine Screen Urine Not Detected (Not Detect); Fentanyl, urine Not Detected (Not Detect); Opiate Screen Urine Not Detected (Not Detect); Phencyclidine Screen Urine Not Detected (Not Detect)
[2022-12-07] VITALS (7 sets, daily range): BP systolic 112–140; BP diastolic 73–82; PULSE 96–108; RESP 13–18; TEMP 36.7–37; O2SAT 96–97
--- NOTE | 2022-12-07 10:38 | PC.NURSE ---
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
--- NOTE | 2022-12-07 12:30 | PC.NURSE ---
patient currently sleeping, satellite project site monitor sinus tach, will continue to monitor
--- NOTE | 2022-12-07 14:38 | PC.NURSE ---
patient moved from room 8 to [facility]- patient alert/orientedx3, pt awaiting for placement to detox, pt c/o rt ear pain will notify provider and continue to monitor
[2022-12-07] MEDS: LORazepam 1 MG TABLET 2 MG PO (14:44)
--- NOTE | 2022-12-07 14:47 | PC.NURSE ---
pt medicated per order. CIWA updated. PA notified
--- NOTE | 2022-12-07 14:50 | MHC.RECOVRN ---
This leader writer met w/ patient, patient was awake in bed. Patient reports intermittent drinking for past 5 years. 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 Patient states currently tremulous, anxious, t/w noted tremulous in hands and tongue. Patient states has hx of ETOH induced seizures, no hx AVH. Patient reports typical withdrawals tremor, anxiety, sleeplessness. Patient reports hx of treatment, ATS, CSS, TSS. Patient reports long stay at [facility] in [place], 6 months recovery time at [facility] in [place]. Patient reports has attended IOP in the past at [facility]. Patient reports has power and recovery superintendent, is prescribed Naltrexone by psychiatrist. Patient states Naltrexone is helpful when pt remembers to take it. T/W confirmed with [facility] patient has 5:15pm Admission time. Pt states has medications at home that will need to get prior to admitting to [facility]. Pt confirms, lives one block away, to d/c, go home get meds and does have ride to for 5:15pm, Provider aware.
--- NOTE | 2022-12-07 15:20 | PC.NURSE ---
patient a&ox3, ambulating with steady gait, vss, pt noted to continue to be tremulous has been medicated with ativan previously. per provider pt is to discharge to home to obtain his medication and present to [facility].
== END 2022-12-07 15:25 | disposition home or self-care (01) ==
PROVIDERS: Physician Assistant; Emergency Provider Student in an Organized Health Care Education/Training Program
DX: F10.120 Alcohol abuse with intoxication, uncomplicated (principal); Y90.8 Blood alcohol level of 240 mg/100 ml or more; S00.83XA Contusion of other part of head, initial encounter; W19.XXXA Unspecified fall, initial encounter; R00.0 Tachycardia, unspecified; I10 Essential (primary) hypertension; R56.9 Unspecified convulsions; Z20.822 Contact with and (suspected) exposure to COVID-19; Y93.9 Activity, unspecified; Y92.9 Unspecified place or not applicable; Y99.9 Unspecified external cause status; Z79.899 Other long term (current) drug therapy
CPT/HCPCS: 70450; 80048; 80076; 80307; 82077; 83735; 85025; 87635; 96360; 99284; 99285